=== PATIENT | female | born 1985 | race Caucasian/White ===

== ENCOUNTER 2019-05-01 05:30 | Inpatient (IN) | payer BC, OTHER ==
--- NOTE | 2019-04-30 18:37 | PDOC.LDHP ---
Labor and Delivery H&P Chief complaint: scheduled induction HPI: Pt is scheduled for IOL @ 41 weeks. Uncomplicated . Current gestational age (weeks): 41 Due date: 04/24/19 Grav: 5 Para: 2 OB History Details: x2 Current complications: none, other (recurrent UTI) Abnormal US findings: Yes (ovarian cyst) Past Medical History: ovarian cystectomy Current medications: pre- vitamins, other (amoxicillin 500mg QHS) Previous surgical history: other (ovarian cystectomy) Social history: none - OB Labs Blood type: O RH: positive Antibody Screen: negative HIV: negative RPR: negative HEPSAg: negative 1 hour GCT: negative GBS: negative Urine drug screen: negative Rubella: immune - Assessment L&D Assessment: medically indicated induction (41 weeks/prolonged ) - Plan Plan: admit to L&D, labor augmentation if indicated, informed consent obtained, anesthesia consult for pain management -: A/P: Scheduled for IOL @ 41 weeks on 05/01/19.
[2019-05-01] MEDS ORDERED: NS w/ Oxytocin 10 units 500 ML IV SCH ×2 (06:19)
[2019-05-01] MEDS ORDERED: Promethazine HCl 25 MG/ML VIAL IM PRN (06:19)
[2019-05-01] MEDS ORDERED: Butorphanol Tartrate 1 MG/ML VIAL SLOW IVP PRN (06:19)
[2019-05-01] MEDS ORDERED: Lidocaine 1% (PF) 30 ML VIAL SC PRN (06:19)
[2019-05-01] MEDS ORDERED: Ibuprofen 800 MG TAB PO PRN (06:19)
[2019-05-01] MEDS ORDERED: hydrALAZINE 20 MG/ML VIAL SLOW IVP PRN ×2 (06:19→17:18)
[2019-05-01] MEDS ORDERED: HYDROcodone/Acetaminophen 5/325 mg Tablet PO PRN ×4 (06:19→17:18)
[2019-05-01] MEDS ORDERED: Ondansetron PF 4 MG/2 ML Vial IVP PRN ×2 (06:19→17:18)
[2019-05-01] MEDS ORDERED: NS / Oxytocin 40 units/1000ml 1,000 ML IV PRN (06:19)
[2019-05-01 06:49] VITALS: BMI 25.0
[2019-05-01] MEDS: Lactated Ringer's 1,000 ML IV SCH ×2 (07:23→16:43)
[2019-05-01 07:54] LABS: Hemoglobin 12.1 g/dL (12.0-16.0); Mean Corpuscular HGB CONC 33.6 g/dL (32.0-36.0); Mean Corpuscular Hemoglobin 31.4 pg (27.0-31.0); Mean Corpuscular Volume 93.6 fL (78.0-98.0); Mean Platelet Volume 8.8 fL (7.4-10.4); Platelet Count 191 thou/uL (130-400); RBC Distribution Width 12.4 % (11.5-14.5); Red Blood Cell (RBC) Count 3.86 mill/uL (4.20-5.40); White Blood Cell (WBC) Count 8.5 thou/uL (4.8-10.8)
[2019-05-01 08:22] LABS: HBSAg Index 0.21 S/CO (0-0.99); Hep B Surf Ag Non-Reactive S/CO (NonReactive)
[2019-05-01 08:23] LABS: Syphilis Antibody Nonreactive (Nonreactive); Syphilis Antibody Index 0.06 S/CO (<1.00 Non-Reactive)
[2019-05-01] MEDS ORDERED: Lidocaine 1% (PF) 30 ML VIAL ONE (10:43)
[2019-05-01] MEDS ORDERED: NS / Oxytocin 40 units/1000ml 1,000 ML ONE (10:43)
--- NOTE | 2019-05-01 11:22 | PDOC.LDPN ---
Labor & Delivery Progress Note - Subjective Subjective: comfortable - Objective Vital signs reviewed and normal: yes General: resting Dilation: 3 Effacement: 25% Station: -2 FHT: category 1 AROM: clear fluid - Assessment (1) 41 weeks gestation of Code(s): Z3A.41 - 41 WEEKS GESTATION OF Current Visit: Yes Status : Acute Plan: continue plan of care -: AROM with no pitocin at this time at pt request.
--- NOTE | 2019-05-01 13:20 | PDOC.LDPN ---
Labor & Delivery Progress Note - Subjective Subjective: comfortable - Objective Vital signs reviewed and normal: yes General: resting Dilation: 5 Effacement: 50% FHT: category 1 - Assessment (1) 41 weeks gestation of Code(s): Z3A.41 - 41 WEEKS GESTATION OF Current Visit: Yes Status : Acute Plan: labor augmentation, pitocin for augmentation -: IOL @ 41 weeks, no change last 2 hours after AROM. Pitocin indication reviewed. Pt agrees.
[2019-05-01] MEDS ORDERED: Fentanyl 4 mcg/Bup 0.1% Cadd 100 ML ONE (15:27)
--- NOTE | 2019-05-01 15:54 | PDOC.OPDEL ---
OB Operative/Delivery Note Delivery Dr/Surgeon: Jaden Pre-Delivery Diagnosis: medically indicated induction (41 weeks) Procedure/Post Delivery Dx: spontaneous vaginal delivery Weeks gestation: 41 Anesthesia: local - Findings A Sex: female - 1 min: 8 - 5 min: 9 - Additional Findings/Plan Placenta delivered: spontaneous Repaired Obstetrical Laceration: 1st degree Estimated blood loss: 200ml Post delivery plan: routine recovery
[2019-05-01] MEDS ORDERED: Bisacodyl 10 MG SUPP PR PRN (17:18)
[2019-05-01] MEDS ORDERED: diphenhydrAMINE 25 MG CAP PO PRN (17:18)
[2019-05-01] MEDS ORDERED: Adacel (T-DAP) 0.5 ML SYRINGE IM ONE (17:18)
[2019-05-01] MEDS ORDERED: Preparation H Ointment 28 GM TUBE PR PRN (17:18)
[2019-05-01] MEDS ORDERED: NS / Oxytocin 40 units/1000ml 1,000 ML IV SCH (17:18)
[2019-05-01] MEDS ORDERED: Lanolin Ointment 7 GM TUBE TOP PRN (17:18)
[2019-05-01] MEDS ORDERED: Milk Of Magnesia 30 ML UDCUP PO PRN (17:18)
[2019-05-01] MEDS: Ferrous Sulfate 325 MG TAB PO SCH (19:08)
[2019-05-01] MEDS: Ibuprofen 800 MG TAB PO SCH (22:20)
[2019-05-01] MEDS: Docusate Calcium (SURFAK) 240 MG CAP PO SCH (22:20)
[2019-05-02] MEDS: Ibuprofen 800 MG TAB PO SCH ×3 (05:53→22:25)
[2019-05-02] MEDS: Ferrous Sulfate 325 MG TAB PO SCH ×2 (07:50→17:46)
[2019-05-02] MEDS: Docusate Calcium (SURFAK) 240 MG CAP PO SCH ×2 (09:23→21:30)
[2019-05-02] MEDS: Prenatal Vitamin 1 TAB PO SCH (09:23)
--- NOTE | 2019-05-02 12:01 | PDOC.PP ---
Post Progress Note Post Day #: 1 Subjective: doing well, no feeding or pain issues, baby under bili lights PO intake tolerated: yes Flatus: yes Ambulation: yes Vital Signs (12 hours) Temp Pulse Resp BP Pulse Ox 05/02/19 11:48 98.9 F 62 20 99/62 05/02/19 08:12 98.7 F 64 20 114/73 97 05/02/19 05:53 98.8 F 58 L 111/51 L 05/02/19 00:36 97.9 F 63 109/58 L Weight Weight 165 lb - Physical Examination General: NAD Respiratory: non-labored breathing Psychiatric: A&Ox3, normal affect Result Diagrams: 05/01/19 07:29 Additional Labs: Post Labs Blood Type O POSITIVE 05/01/19 07:56 Hep Bs Antigen Non-Reactive S/CO (NonReactive) 05/01/19 07:29 (1) 41 weeks gestation of Code(s): Z3A.41 - 41 WEEKS GESTATION OF Status: Acute - Assessment/Plan PPD 1 doing well, likely DC tomorrow w baby staying under bili lights.
[2019-05-03] MEDS: Ibuprofen 800 MG TAB PO SCH (05:34)
[2019-05-03] MEDS: Ferrous Sulfate 325 MG TAB PO SCH (07:48)
[2019-05-03 08:02] VITALS: BP 107/66; TEMP 99
--- NOTE | 2019-05-03 08:30 | PDOC.PP ---
Post Progress Note Post Day #: 2 Subjective: doing well, no concerns, baby under lights still PO intake tolerated: yes Flatus: yes Ambulation: yes Vital Signs (12 hours) Temp Pulse Resp BP Pulse Ox 05/03/19 08:01 99.0 F 78 20 107/66 96 Weight Weight 165 lb - Physical Examination General: NAD Respiratory: non-labored breathing Psychiatric: A&Ox3, normal affect Result Diagrams: 05/01/19 07:29 Additional Labs: Post Labs Blood Type O POSITIVE 05/01/19 07:56 Hep Bs Antigen Non-Reactive S/CO (NonReactive) 05/01/19 07:29 (1) 41 weeks gestation of Code(s): Z3A.41 - 41 WEEKS GESTATION OF Status: Acute - Assessment/Plan PPD2 doing well, plan for DC today.
[2019-05-03] MEDS: Docusate Calcium (SURFAK) 240 MG CAP PO SCH (09:22)
[2019-05-03] MEDS: Prenatal Vitamin 1 TAB PO SCH (09:22)
== END 2019-05-03 13:10 | disposition home or self-care (01) | DRG 807 ==
LOC: L&D 05:54 → 3SW 18:25
PROVIDERS: ADMIT Obstetrics & Gynecology; ATTEND Obstetrics & Gynecology
PROC: 10E0XZZ Delivery of Products of Conception, External Approach (ICD-10-PCS; principal; 2019-05-01)
PROC: 10907ZC Drainage of Amniotic Fluid, Therapeutic from Products of Conception, Via Natural or Artificial Opening (ICD-10-PCS; 2019-05-01)
PROC: 0HQ9XZZ Repair Perineum Skin, External Approach (ICD-10-PCS; 2019-05-01)
DX: O48.0 Post-term pregnancy (principal); Z37.0 Single live birth; O70.0 First degree perineal laceration during delivery; Z3A.41 41 weeks gestation of pregnancy
CPT/HCPCS: 36415; 85027; 86780; 86850; 86900; 86901; 87340; J2001; J2590